=== PATIENT | male | born 1975 | race Caucasian/White ===

== ENCOUNTER 2022-06-22 07:14 | Inpatient (IN) | payer OTHER, BC ==
[2022-06-22 08:03] LABS: #Lymphocytes 1.3 thou/uL (1.20-3.40); #Monocytes 0.9 thou/uL (0.11-0.59); #Neutrophils 8.3 thou/uL (1.40-6.50); %Basophils 0.2 % (0.0-1.0); %Eosinophils 0.5 % (0.0-10.0); %Lymphocytes 12.6 % (21.0-51.0); %Monocytes 8.7 % (0.0-10.0); Hemoglobin 14.2 g/dL (14.0-18.0); Mean Corpuscular HGB CONC 34.6 g/dL (32.0-36.0); Mean Corpuscular Hemoglobin 30.9 pg (27.0-31.0); Mean Corpuscular Volume 89.1 fl (78.0-98.0); Mean Platelet Volume 10.5 fL (7.4-10.4); Platelet Count 132 10x3/uL (130-400); RBC Distribution Width 12.9 % (11.5-14.5); Red Blood Cell (RBC) Count 4.61 mill/uL (4.70-6.10); White Blood Cell (WBC) Count 10.6 10x3/uL (4.8-10.8)
[2022-06-22 08:12] LABS: ALT (SGPT) 40 U/L (8-55); AST (SGOT) 71 U/L (5-34); Albumin 3.7 g/dL (3.5-5.0); Alkaline Phosphatase 118 U/L (40-110); Anion Gap 9 mmol/L (10-20); BUN (Urea Nitrogen) 8 mg/dL (8.9-20.6); Bilirubin, Total 0.6 mg/dL (0.2-1.2); Calc. Creatinine Clearance 0 mL/min (70-130); Calcium 8.5 mg/dL (7.8-10.44); Carbon Dioxide 27 mmol/L (22-29); Chloride 107 mmol/L (98-107); Estimated GFR 106; Globulin 2.6 g/dL (2.4-3.5); Glucose 153 mg/dL (70-105); Potassium 3.2 mmol/L (3.5-5.1); Protein, Total 6.3 g/dL (6.0-8.3); Sodium 140 mmol/L (136-145)
[2022-06-22] MEDS ORDERED: Ondansetron PF 4 MG/2 ML Vial ONE ×2 (08:18→08:59)
[2022-06-22] MEDS ORDERED: Fentanyl 100 MCG/2 ML VIAL ONE (08:18)
[2022-06-22 08:51] LABS: Acetaminophen Less than 10.0 mcg/mL (10.0-30.0); Magnesium 1.8 mg/dL (1.6-2.6)
[2022-06-22 08:52] LABS: Alcohol Less than 10 mg/dL (Less than 10); Salicylate Less than 8.0 mg/dL (15.0-30.0)
[2022-06-22] MEDS ORDERED: Boostrix 0.5 ML (Tdap) VIAL (>/=7 yrs of age) ONE (09:44)
[2022-06-22 10:17] LABS: Prothrombin Time 14.1 sec (12.0-14.7)
[2022-06-22] MEDS: Scopolamine 1.5 mg/72 hour Patch TD SCH (10:22)
[2022-06-22 10:40] VITALS: BMI 38.4
[2022-06-22] MEDS ORDERED: hydrALAZINE 20 MG/ML VIAL SLOW IVP PRN (10:50)
[2022-06-22] MEDS ORDERED: Ipratropium/Albuterol 3 ML NEB NEB PRN (10:50)
[2022-06-22] MEDS ORDERED: Ondansetron PF 4 MG/2 ML Vial IVP PRN (10:50)
[2022-06-22] MEDS ORDERED: Cyclobenzaprine 10 MG TAB PO PRN (10:56)
[2022-06-22] MEDS ORDERED: Sodium Chloride 0.9% 1,000 ML IV SCH (11:00)
[2022-06-22] MEDS ORDERED: Potassium Chloride 20 MEQ in Premix Bag 1 BAG IVPB SCH (11:30)
[2022-06-22] MEDS ORDERED: Magnesium 2 GM/50 ML(in water) 2 GM in Premix Bag 1 BAG IVPB SCH (11:30)
[2022-06-22 11:31] LABS: Lactic Acid 3.3 mmol/L (0.5-2.2)
[2022-06-22] MEDS: Bacitracin 1 PK TOP SCH ×2 (14:23→20:50)
[2022-06-22] MEDS: Pregabalin 50 MG CAP PO SCH ×2 (14:23→20:51)
[2022-06-22] MEDS: Morphine 2 MG/ML VIAL SLOW IVP PRN (14:28)
[2022-06-22] MEDS ORDERED: Acetaminophen 500 MG TAB PO SCH (14:30)
[2022-06-22] MEDS: Acetaminophen 500 MG TAB PO SCH ×3 (15:00→23:55)
[2022-06-22] MEDS ORDERED: FLU VACC QS2022-23(6MOS UP)/PF 60 MCG/0.5 ML SYRINGE IM ONE (15:15)
[2022-06-22 17:21] LABS: SARS-CoV-2 NAA Rapid Test Not Detected (NotDetected)
[2022-06-22] MEDS: Senokot S 8.6-50 MG TAB PO SCH (20:50)
[2022-06-22] MEDS: tiZANidine HCl 4 MG TAB PO SCH (20:50)
[2022-06-22] MEDS: Famotidine/PF 20 mg/2ml Vial SLOW IVP SCH (20:50)
[2022-06-23 04:54] LABS: Anion Gap 9 mmol/L (10-20); BUN (Urea Nitrogen) 11 mg/dL (8.9-20.6); Calc. Creatinine Clearance 164 mL/min (70-130); Carbon Dioxide 26 mmol/L (22-29); Chloride 108 mmol/L (98-107); Estimated GFR 103; Glucose 117 mg/dL (70-105); Magnesium 2.2 mg/dL (1.6-2.6); Phosphorus 2.6 mg/dL (2.3-4.7); Potassium 3.9 mmol/L (3.5-5.1); Sodium 139 mmol/L (136-145)
[2022-06-23 05:13] LABS: #Eosinphils 0.1 thou/uL (0.0-0.7); #Lymphocytes 1.4 thou/uL (1.20-3.40); #Neutrophils 4.8 thou/uL (1.40-6.50); %Basophils 0.4 % (0.0-1.0); %Eosinophils 1.3 % (0.0-10.0); %Lymphocytes 19.4 % (21.0-51.0); %Monocytes 13.2 % (0.0-10.0); %Neutrophils 65.6 % (42.0-75.0); Hemoglobin 11.1 g/dL (14.0-18.0); Mean Corpuscular HGB CONC 34.6 g/dL (32.0-36.0); Mean Corpuscular Hemoglobin 31.1 pg (27.0-31.0); Mean Platelet Volume 9.9 fL (7.4-10.4); Platelet Count 106 10x3/uL (130-400); Red Blood Cell (RBC) Count 3.57 mill/uL (4.70-6.10); White Blood Cell (WBC) Count 7.3 10x3/uL (4.8-10.8)
[2022-06-23] MEDS: Acetaminophen 500 MG TAB PO SCH ×2 (05:52→11:11)
[2022-06-23] MEDS: Pregabalin 50 MG CAP PO SCH ×3 (08:25→20:22)
[2022-06-23] MEDS: Bacitracin 1 PK TOP SCH ×3 (08:25→20:20)
[2022-06-23] MEDS: Famotidine/PF 20 mg/2ml Vial SLOW IVP SCH ×2 (08:26→20:21)
[2022-06-23] MEDS: Senokot S 8.6-50 MG TAB PO SCH ×2 (08:26→20:21)
[2022-06-23] MEDS: tiZANidine HCl 4 MG TAB PO SCH ×2 (08:26→20:21)
[2022-06-23] MEDS: Polyethylene Glycol 3350 17 GM Packet PO SCH (08:27)
[2022-06-23 09:08] LABS: Lactic Acid 0.9 mmol/L (0.5-2.2)
[2022-06-23] MEDS: Morphine 2 MG/ML VIAL SLOW IVP PRN ×3 (12:32→20:27)
[2022-06-23] MEDS ORDERED: Acetaminophen/Codeine 30-300mg Tablet PO SCH (16:15)
[2022-06-23] MEDS: Acetaminophen/Codeine 30-300mg Tablet PO SCH ×2 (18:09→23:09)
[2022-06-24] MEDS: Acetaminophen/Codeine 30-300mg Tablet PO SCH ×4 (06:15→23:01)
[2022-06-24] MEDS: Morphine 2 MG/ML VIAL SLOW IVP PRN (06:30)
[2022-06-24] MEDS: Bacitracin 1 PK TOP SCH ×3 (07:52→20:26)
[2022-06-24] MEDS: Famotidine/PF 20 mg/2ml Vial SLOW IVP SCH ×2 (07:52→20:33)
[2022-06-24] MEDS: Pregabalin 50 MG CAP PO SCH ×3 (07:52→20:33)
[2022-06-24] MEDS: Senokot S 8.6-50 MG TAB PO SCH ×2 (07:53→20:34)
[2022-06-24] MEDS: tiZANidine HCl 4 MG TAB PO SCH ×3 (07:54→20:34)
[2022-06-24] MEDS: Polyethylene Glycol 3350 17 GM Packet PO SCH ×2 (07:55→15:19)
[2022-06-24] MEDS ORDERED: Melatonin 3 MG TAB PO SCH (21:00)
[2022-06-25] MEDS: Acetaminophen/Codeine 30-300mg Tablet PO SCH ×2 (05:38→12:06)
[2022-06-25] MEDS: Scopolamine 1.5 mg/72 hour Patch TD SCH (09:05)
[2022-06-25] MEDS: Senokot S 8.6-50 MG TAB PO SCH (09:06)
[2022-06-25] MEDS: Pregabalin 50 MG CAP PO SCH (09:06)
[2022-06-25] MEDS: Polyethylene Glycol 3350 17 GM Packet PO SCH (09:07)
[2022-06-25] MEDS: Bacitracin 1 PK TOP SCH (09:07)
[2022-06-25] MEDS: tiZANidine HCl 4 MG TAB PO SCH (09:07)
[2022-06-25] MEDS: Famotidine/PF 20 mg/2ml Vial SLOW IVP SCH (09:07)
[2022-06-25 17:08] VITALS: BP 99/71; TEMP 98
== END 2022-06-25 17:15 | disposition home health service (06) | DRG 83 ==
LOC: ERS 07:14 → ERHOLD 09:18 → CCU 13:03 → SURG A 06-23 16:25
PROVIDERS: ADMIT Surgery; ATTEND Surgery
DX: S06.6X9A Traumatic subarachnoid hemorrhage with loss of consciousness of unspecified duration, initial encounter (principal); S32.028A Other fracture of second lumbar vertebra, initial encounter for closed fracture; S32.038A Other fracture of third lumbar vertebra, initial encounter for closed fracture; S32.059A Unspecified fracture of fifth lumbar vertebra, initial encounter for closed fracture; S06.5XAA Traumatic subdural hemorrhage with loss of consciousness status unknown, initial encounter; M51.36 Other intervertebral disc degeneration, lumbar region; M48.02 Spinal stenosis, cervical region; S40.812A Abrasion of left upper arm, initial encounter; G89.29 Other chronic pain; R40.2362 Coma scale, best motor response, obeys commands, at arrival to emergency department; R40.2142 Coma scale, eyes open, spontaneous, at arrival to emergency department; R40.2252 Coma scale, best verbal response, oriented, at arrival to emergency department; V43.52XA Car driver injured in collision with other type car in traffic accident, initial encounter; Y92.410 Unspecified street and highway as the place of occurrence of the external cause; Z90.49 Acquired absence of other specified parts of digestive tract; Z98.1 Arthrodesis status
CPT/HCPCS: 36415; 70450; 71045; 72125; 74177; 80048; 80053; 80307; 82533; 83605; 83735; 84100; 85025; 85610; 85730; 90471; 90715; 96365; 96366; 96375; 96376; G0390; J2272; J2405; J3010; J3475; J3480; L0172; P9045; S0028; U0002

== ENCOUNTER 2022-07-26 13:58 | Outpatient (CLI) | payer BC | END 2022-07-26 13:59 | disposition home or self-care (01) | LOC: SCSMRI 13:58 | PROVIDERS: ATTEND Nurse Practitioner Family | DX: S32.009A Unspecified fracture of unspecified lumbar vertebra, initial encounter for closed fracture (principal); S22.009A Unspecified fracture of unspecified thoracic vertebra, initial encounter for closed fracture; D18.09 Hemangioma of other sites; M47.814 Spondylosis without myelopathy or radiculopathy, thoracic region | CPT/HCPCS: 72146 ==